=== PATIENT | female | born 1975 | race Caucasian/White ===

== ENCOUNTER 2018-12-15 22:09 | Emergency (ER) | payer MEDICAID ==
--- NOTE | 2018-12-15 22:38 | NUR ---
BIBA FOR C/O DIZZINESS, AND HIGH BP. PT HAD BLUURED VISION AT HOME BUT NOT ANY MORE. - H/A, - FACIAL DROOP. - WEAKNESS ON ANY SIDE OF BODY OR ARMS OE LEG. NOT TAKING ANY BP MEDS REGULARLY HOWEVER SHE TOOK A BENICAR (NEIGHBOR'S MEDICATION) FOR HER BP TODAY. PLACED ON A MONITOR,
[2018-12-15 23:55] LABS: BASOPHILS # (AUTO) 0.1 /CMM (0.0-0.2); BASOPHILS % (AUTO) 0.6 % (0.0-2.0); EOSINOPHILS % (AUTO) 0.8 % (0.0-6.0); HEMATOCRIT 41 % (33-45); HEMOGLOBIN 13.9 g/dL (11.5-14.8); LYMPHOCYTES # (AUTO) 2.1 /CMM (0.8-4.8); LYMPHOCYTES % (AUTO) 16.1 % (20.0-44.0); MEAN CORPUSCULAR HGB CONC 34 g/dl (31.0-36.0); MEAN CORPUSCULAR VOLUME 94 fL (82-100); MONOCYTES # (AUTO) 0.6 /CMM (0.1-1.30); MONOCYTES % (AUTO) 4.7 % (2.0-12.0); NEUTROPHILS # (AUTO) 9.9 /CMM (1.8-8.9); NEUTROPHILS % (AUTO) 77.8 % (43.0-81.0); PLATELET COUNT (AUTO) 223 /CMM (150-450); RED BLOOD CELL COUNT(AUTO) 4.33 MIL/uL (4.0-5.2); WHITE BLOOD COUNT (AUTO) 12.8 K/uL (4.3-11.0)
[2018-12-16] MEDS ORDERED: IV NS 0.9% 1,000 ML BAG IV ONE
[2018-12-16 00:01] LABS: CALCIUM, SERUM 9.8 mg/dL (8.5-10.1); CARBON DIOXIDE 26 mmol/L (21-32); CHLORIDE 103 mmol/L (98-107); CREATININE 0.8 mg/dL (0.6-1.3); GLUCOSE 131 mg/dL (74-106); POTASSIUM 3.9 mmol/L (3.5-5.1); SODIUM SERUM 139 mmol/L (136-145); UREA NITROGEN, BLOOD 14 mg/dL (7-18)
[2018-12-16 00:07] LABS: ALANINE AMINOTRANSFERASE 29 U/L (12-78); ALKALINE PHOSPHATASE 71 U/L (46-116); ASPARTATE AMINOTRANSFERASE 15 U/L (15-37); BILIRUBIN,DIRECT 0.1 mg/dL (0.0-0.2); BILIRUBIN,TOTAL 0.3 mg/dL (0.2-1.0); TOTAL PROTEIN, SERUM 7.6 g/dL (6.4-8.2)
[2018-12-16] MEDS ORDERED: DIAZEPAM 5 MG TABLET ONE (00:23)
[2018-12-16] MEDS ORDERED: DIAZEPAM 10 MG TABLET PO ONE (00:30)
--- NOTE | 2018-12-16 00:44 | NUR ---
LEFT FOR CT
--- NOTE | 2018-12-16 00:50 | NUR ---
BAck from ct
[2018-12-16] MEDS ORDERED: AMLODIPINE BESYLATE 5 MG TABLET PO ONE (01:00)
[2018-12-16] MEDS ORDERED: AMLODIPINE BESYLATE 5 MG TABLET ONE (01:16)
[2018-12-16 02:17] VITALS: BP 138/103
== END 2018-12-16 02:18 | disposition home or self-care (01) ==
LOC: ER 22:15
DX: R42 Dizziness and giddiness (principal); I10 Essential (primary) hypertension
CPT/HCPCS: 36415; 70450; 71045; 80048; 80076; 84484; 85025; 93005; 96360; 99284; J7030